=== PATIENT | male | born 1955 | race Caucasian/White ===

== ENCOUNTER 2016-12-03 08:00 | Outpatient (CLI) | payer OTHER ==
[2016-12-03 13:05] LABS: Cardiac Risk 4.9 (Less than 4.5)
== END 2016-12-03 08:01 ==
LOC: NAVSJIPCSP 08:00
PROVIDERS: ATTEND Internal Medicine
DX: E78.5 Hyperlipidemia, unspecified (principal)
CPT/HCPCS: 36415; 80061

== ENCOUNTER 2017-03-04 08:46 | Outpatient (CLI) | payer OTHER ==
[2017-03-04 12:58] LABS: Cardiac Risk 3.8 (Less than 4.5)
== END 2017-03-04 08:47 | disposition home or self-care (01) ==
LOC: NAVSJIPCSP 08:46
PROVIDERS: ATTEND Internal Medicine
DX: E78.5 Hyperlipidemia, unspecified (principal); Z79.899 Other long term (current) drug therapy
CPT/HCPCS: 36415; 80061

== ENCOUNTER 2023-03-08 01:13 | Emergency (ER) | payer MEDICARE ==
[2023-03-08] MEDS ORDERED: dilTIAZem 125 MG/25 ML SDV ONE (01:19)
[2023-03-08] MEDS ORDERED: Sodium Chloride 0.9% 100 ML ONE (01:19)
[2023-03-08] MEDS ORDERED: Aspirin Chewable 81 MG TAB ONE (01:23)
[2023-03-08] MEDS ORDERED: dilTIAZem 25 MG/5 ML VIAL ONE (01:23)
[2023-03-08 01:33] LABS: #Basophils 0.1 thou/uL (0.0-0.2); #Eosinphils 0.3 thou/uL (0.0-0.7); #Monocytes 0.6 thou/uL (0.11-0.59); %Basophils 1.2 % (0.0-1.0); %Eosinophils 4.7 % (0.0-10.0); %Lymphocytes 34.3 % (21.0-51.0); %Monocytes 9.9 % (0.0-10.0); Hemoglobin 14.6 g/dL (14.0-18.0); Mean Corpuscular Hemoglobin 32.4 pg (27.0-31.0); Mean Corpuscular Volume 95.3 fl (78.0-98.0); Mean Platelet Volume 7.3 fL (7.4-10.4); Platelet Count 160 10x3/uL (130-400); RBC Distribution Width 11.8 % (11.5-14.5); Red Blood Cell (RBC) Count 4.51 mill/uL (4.70-6.10); White Blood Cell (WBC) Count 5.9 10x3/uL (4.8-10.8)
[2023-03-08 01:38] LABS: INR-International Normal Ratio 0.9; PTT 26.7 sec (22.9-36.1); Prothrombin Time 12.7 sec (12.0-14.7)
[2023-03-08 01:47] LABS: Troponin I Less than 0.010 ng/mL (< 0.028)
[2023-03-08 01:48] LABS: ALT (SGPT) 22 U/L (8-55); AST (SGOT) 21 U/L (5-34); Albumin 4.2 g/dL (3.4-4.8); Alkaline Phosphatase 56 U/L (40-110); Anion Gap 14 mmol/L (10-20); BUN (Urea Nitrogen) 19 mg/dL (8.4-25.7); Bilirubin, Total 0.4 mg/dL (0.2-1.2); Calc. Creatinine Clearance 0 mL/min (70-130); Calcium 9.7 mg/dL (7.8-10.44); Carbon Dioxide 23 mmol/L (23-31); Chloride 106 mmol/L (98-107); Estimated GFR 63; Globulin 2.4 g/dL (2.4-3.5); Glucose 118 mg/dL (80-115); Magnesium 1.9 mg/dL (1.6-2.6); Potassium 3.3 mmol/L (3.5-5.1); Protein, Total 6.6 g/dL (5.8-8.1); Sodium 140 mmol/L (136-145)
[2023-03-08] MEDS ORDERED: Potassium Chloride 20 MEQ TAB ONE (01:52)
[2023-03-08] MEDS ORDERED: Magnesium 2 GM/50 ML BAG (IN WATER) ONE (02:04)
== END 2023-03-08 02:59 | disposition short-term general hospital (02) ==
LOC: NAV ERS 01:13
DX: I48.91 Unspecified atrial fibrillation (principal); R07.2 Precordial pain; I10 Essential (primary) hypertension; E78.00 Pure hypercholesterolemia, unspecified; M19.90 Unspecified osteoarthritis, unspecified site; F17.220 Nicotine dependence, chewing tobacco, uncomplicated; Z79.899 Other long term (current) drug therapy
CPT/HCPCS: 71045; 80053; 83735; 83880; 84484; 85025; 85610; 85730; 93005; 96365; 96375; J3475

== ENCOUNTER 2023-08-08 00:57 | Emergency (ER) | payer OTHER, MEDICARE ==
[2023-08-08 01:11] LABS: #Basophils 0.1 thou/uL (0.0-0.2); #Eosinphils 0.2 thou/uL (0.0-0.7); #Lymphocytes 2.2 thou/uL (1.20-3.40); #Monocytes 0.6 thou/uL (0.11-0.59); #Neutrophils 2.4 thou/uL (1.40-6.50); %Basophils 1.8 % (0.0-1.0); %Lymphocytes 39.1 % (21.0-51.0); %Monocytes 10.9 % (0.0-10.0); %Neutrophils 44.2 % (42.0-75.0); Hematocrit 39.3 % (42.0-52.0); Hemoglobin 14.2 g/dL (14.0-18.0); Mean Corpuscular HGB CONC 36.2 g/dL (32.0-36.0); Mean Corpuscular Hemoglobin 35.4 pg (27.0-31.0); Mean Corpuscular Volume 97.9 fl (78.0-98.0); Mean Platelet Volume 7.4 fL (7.4-10.4); Platelet Count 180 10x3/uL (130-400); RBC Distribution Width 12.2 % (11.5-14.5); Red Blood Cell (RBC) Count 4.01 mill/uL (4.70-6.10); White Blood Cell (WBC) Count 5.5 10x3/uL (4.8-10.8)
[2023-08-08 01:21] LABS: PTT 26.9 sec (22.9-36.1); Prothrombin Time 13.3 sec (12.0-14.7)
[2023-08-08 01:27] LABS: ALT (SGPT) 24 U/L (8-55); AST (SGOT) 20 U/L (5-34); Albumin 4.2 g/dL (3.4-4.8); Alkaline Phosphatase 56 U/L (40-110); Anion Gap 15 mmol/L (10-20); BUN (Urea Nitrogen) 19 mg/dL (8.4-25.7); Bilirubin, Total 0.3 mg/dL (0.2-1.2); Calc. Creatinine Clearance 0 mL/min (70-130); Calcium 9.3 mg/dL (7.8-10.44); Carbon Dioxide 23 mmol/L (23-31); Chloride 107 mmol/L (98-107); Estimated GFR 72; Globulin 2.6 g/dL (2.4-3.5); Glucose 92 mg/dL (80-115); Potassium 3.3 mmol/L (3.5-5.1); Protein, Total 6.8 g/dL (5.8-8.1); Sodium 142 mmol/L (136-145)
[2023-08-08 01:29] LABS: Troponin I Less than 0.010 ng/mL (< 0.028)
[2023-08-08] MEDS ORDERED: dilTIAZem 25 MG/5 ML VIAL ONE (01:32)
[2023-08-08] MEDS ORDERED: Aspirin Chewable 81 MG TAB ONE (01:32)
[2023-08-08] MEDS ORDERED: dilTIAZem 125 MG/25 ML SDV ONE (01:33)
[2023-08-08] MEDS ORDERED: Digoxin 0.5 MG/2 ML AMP ONE (01:50)
== END 2023-08-08 03:29 | disposition short-term general hospital (02) ==
LOC: NAV ERS 00:57
DX: I48.20 Chronic atrial fibrillation, unspecified (principal); I25.10 Atherosclerotic heart disease of native coronary artery without angina pectoris; E78.5 Hyperlipidemia, unspecified; I10 Essential (primary) hypertension; F17.220 Nicotine dependence, chewing tobacco, uncomplicated; Z79.899 Other long term (current) drug therapy
CPT/HCPCS: 71045; 80053; 84484; 85025; 85610; 85730; 93005; 94760; 96374; J1160